=== PATIENT | male | born 1935 | race Caucasian/White ===

== ENCOUNTER 2023-07-23 11:37 | Emergency (ER) | payer MEDICARE, OTHER, SELFPAY ==
[2023-07-23 11:38] VITALS: PULSE 63; RESP 20; TEMP 35.9; O2SAT 93; BMI 33.2
[2023-07-23 11:42] VITALS: BP 116/66
--- NOTE | 2023-07-23 11:45 | EKG12_ITS ---
Test Reason : SYNCOPE Blood Pressure : / mmHG Vent. Rate : 062 BPM Atrial Rate : 062 BPM P-R Int : 174 ms QRS Dur : 154 ms QT Int : 510 ms P-R-T Axes : 007 046 051 degrees QTc Int : 517 ms Normal sinus rhythm Right bundle branch block Cannot rule out Inferior infarct , age undetermined Abnormal ECG Confirmed by JEMIMA HOOD, BEVERLEY ([id number]), development editor LUCINDA ARMAS ([id number]) on 07/26/2023 9:39:20 AM Referred By: ROMAIN Confirmed By:BEVERLEY ONOFRE MD
[2023-07-23 12:00] LABS: Absolute Lymphocyte Count 2.86 X10^3/uL (0.83-4.51); Basophil# 0.08 X10^3/uL; Basophil% 0.9 % (0-1); Eosinophil# 0.16 X10^3/uL; Eosinophils% 1.7 % (0-5); Hematocrit 41.4 % (40-54); Hemoglobin 13.1 g/dL (13.0-16.5); Lymphocyte # 2.86 X10^3/ul (0.83-4.51); Lymphocyte % 31.2 % (19-41); Mean Corp Hgb Conc 31.6 g/dL (32-36); Mean Corpuscular Hgb 29.8 pg (27.0-32.0); Mean Corpuscular Volume 94.1 fL (80-94); Mean Platelet Vol. 10.4 fl (6.2-12.0); Monocyte# 0.94 X10^3/uL; Monocyte% 10.3 % (0-10); NRBC Flagged by Analyzer 0 % (0-5); Neutrophil # 5.03 X10^3/uL (2.7-7.7); Neutrophil % 54.8 % (47-70); Platelet Count 208 K/mm3 (150-450); RBC Distribution Width CV 13.1 % (11.6-14.6); RBC Distribution Width SD 45.4 fl (35.1-43.9); White Blood Count 9.2 K/mm3 (4.4-11.0)
--- NOTE | 2023-07-23 12:01 | RAD_ITS ---
STUDY: X-RAY CHEST REASON FOR EXAM: Male, 88 years old. Stroke TECHNIQUE: Single AP portable view of the chest. COMPARISON: Comparison is made with prior study dated April 21, 2022. FINDINGS: EKG electrodes are seen. The lungs are clear and expanded. There is no demonstrated pleural abnormality. Sternal cerclage wires and vascular clips are present from a prior sternotomy and coronary artery bypass graft procedure (CABG). Normal mediastinum and cliff. Normal visualized pulmonary arteries. There is atherosclerotic calcification of the aortic arch with tortuosity. There are diffuse degenerative changes of the visualized thoracic spine. There is degenerative osteoarthritis of the bilateral shoulders. There is no demonstrated abnormality of the visualized soft tissue structures of the upper abdomen. RAD/Chest 1 View (Portable) IMPRESSION: No acute abnormality is seen. Electronically Signed: Armando Fowler MD at 12:18 EST ,
[2023-07-23 12:08] LABS: Prothrombin Time (Protime)PT. 13.4 SECONDS (11.7-14.9)
[2023-07-23 12:09] LABS: Partial Thromboplast Time 27.7 Seconds (24.1-36.2)
[2023-07-23 12:12] LABS: Anion Gap 7 (5-15); BUN 17 mg/dL (7-18); BUN/Creat Ratio 12.2 RATIO (10-20); Chloride 107 mmol/L (98-107); Creatinine, Serum 1.39 mg/dL (0.70-1.30); EST Glomerular Filtration Rate 51 mL/min (>60); Est Glom Filt Rate - Afr Amer 62 mL/min (>60); Estimated Creatinine Clearance 47.71 ml/min; Glucose 139 mg/dL (74-106); Sodium Level 141 mmol/L (136-145)
[2023-07-23 12:17] VITALS: BP 112/68; PULSE 59; RESP 15; O2SAT 100
--- NOTE | 2023-07-23 12:42 | EX.ED.DYSGE1 ---
HPI <JESÚS Read - Last Filed: 07/23/23 15:10> History of Present Illness Chief Complaint: Syncope Narrative Narrative: Patient presenting due to a syncopal episode that occurred this morning. His reports that he was sitting at the kitchen stool when he began to have a funny look on his face and pointed to his head and stated, my head. He then passed out, he did not fall off the chair, was able to lower his head onto the counter. reports that he has a history of syncope which has been worked up by cardiology in the past. She reports that he passes out about 1-2 times per year but has never been out as long as today. She reports that today he was out for about 25 minutes and she called EMS who was able to sternal rub the patient and he woke up. Patient reports that he feels well, he denies any head pain, chest pain, abdominal pain, nausea, and vomiting. Patient has a PMH of CABG in 1986, VAMSI, Parkinson's disease, dementia, and hyperlipidemia. PFSH <JESÚS Read - Last Filed: 07/23/23 15:10> [facility] Medical History Atherosclerotic heart disease of [place] coronary artery without angina pectoris Complicated UTI (urinary tract infection) COVID-19 Degenerative joint disease Dementia Generalized weakness GERD (gastroesophageal reflux disease) History of atrial fibrillation History of Parkinson's disease Hyperlipidemia Obesity Obstructive sleep apnea Parkinson disease Paroxysmal atrial fibrillation Psoriasis Syncope (08/13/21) Unable to ambulate Home Medications aspirin 81 mg chewable tablet 81 mg PO DAILY@0800 heart health 11/18/19 [History Last Taken 05/19/20] donepezil 10 mg tablet 10 mg PO DAILY dementia 11/18/19 [History Last Taken 05/19/20] therapeutic multivitamin 1 ea PO DAILY vitamin 11/18/19 [History Last Taken 05/19/20] carbidopa 25 mg-levodopa 100 mg tablet 1 ea PO TID parkinsons 05/20/20 [History Last Taken 05/19/20] memantine 14 mg capsule sprinkle,extended release 24hr 14 mg PO DAILY 12/19/20 [History Last Taken Unknown] acetaminophen 650 mg tablet,extended release 1,000 mg PO DAILY 03/22/21 [History Last Taken Unknown] gabapentin 300 mg capsule 300 mg PO BID 12/17/21 [History Last Taken Unknown] omeprazole 40 mg capsule,delayed release 40 mg PO DAILY 06/12/22 [History Last Taken Unknown] vit C 250 mg-vit E 90 mg-zinc 40 mg-copper 1 [id number] capsule (PreserVision AREDS-2) 1 tab PO BID 06/12/22 [History Last Taken Unknown] atorvastatin 40 mg tablet See Rx Instructions .Route .COMPLEX #90 tabs 10/19/22 [Rx Last Taken Unknown] carvedilol 3.125 mg tablet 3.125 mg PO BID post bypass #180 tabs 12/10/22 [Rx Last Taken Unknown] Allergy/AdvReac Type Severity Reaction Status Date / Time No Known Allergies Allergy Verified 12/10/22 12:59 Family History Father CVA (cerebral vascular accident) Mother CVA (cerebral vascular accident) Brother CVA (cerebral vascular accident) CAD (coronary artery disease) Hx of CABG Surgical History H/O coronary artery bypass surgery (05/1986) History of left heart catheterization (03/08/03) Status post total knee replacement, right Social History housing: house current occupational status: retired Smoking Status: Former smoker how long ago did patient quit smokin years ago alcohol intake: never substance use type: does not use caffeine: Yes Type: carbonated beverages Number of servings: 1 ROS <JESÚS Read - Last Filed: 07/23/23 15:10> ROS ED Constitutional Constitutional ED: Denies chills or fever(s) Eyes Eyes: Denies change in vision Cardiovascular Cardiovascular: Denies chest pain Respiratory/Chest Respiratory/Chest: Denies cough or dyspnea Gastrointestinal Gastrointestinal: Denies abdominal pain, nausea or vomiting Genitourinary Genitourinary ED: Denies dysuria, hematuria or urinary urgency Musculoskeletal Musculoskeletal: Denies arthralgias or myalgias Integumentary Denies rash Neurologic Neurologic: Denies dizziness, headache(s), paresthesias or weakness EXAM <JESÚS Read - Last Filed: 07/23/23 15:10> Physical Exam Const Vital Signs: 07/23/23 11:38 07/23/23 11:42 07/23/23 11:42 Temperature 96.6 F L Temperature Source Temporal Pulse Rate 63 Respiratory Rate 20 H Respiratory Effort Normal Blood Pressure 116/66 Blood Pressure Mean 82 Pulse Ox 93 Oxygen Delivery Method Room Air 07/23/23 12:11 07/23/23 12:17 07/23/23 14:21 Temperature Temperature Source Pulse Rate 59 L 63 Respiratory Rate 15 14 Respiratory Effort Blood Pressure 112/68 125/61 H Blood Pressure Mean 82 82 Pulse Ox 100 98 Oxygen Delivery Method Room Air Room Air 07/23/23 14:34 Temperature 97.6 F L Temperature Source Pulse Rate 63 Respiratory Rate 14 Respiratory Effort Blood Pressure 125/61 H Blood Pressure Mean 82 Pulse Ox 98 Oxygen Delivery Method Positive well nourished, well developed and no apparent distress General Appearance ED: well developed HEENT Reports normocephalic and head/scalp atraumatic Mouth ED: Yes moist mucous membranes normal Eyes PERRL and EOMs intact bilaterally Neck full ROM and supple Chest Wall inspection of chest normal Resp normal respiratory effort and clear to auscultation bilaterally Cardio regular rate and regular rhythm GI soft to palpation, non-tender, non-distended and no masses Back/Spine normal ROM and normal to inspection Extremity normal to inspection and full ROM Neuro oriented x3, CN's II-XII intact bilaterally, moves all extremities, no focal motor deficits and no sensory deficits noted Sensorium / Orientation: awake and alert Motor Exam: strength 5/5 throughout Psych mental status grossly normal and thought process normal Skin no rashes or lesions noted and no wounds <Dr. Moose Zapata MD - Last Filed: 07/23/23 14:36> Physical Exam Const Vital Signs: 07/23/23 11:38 07/23/23 11:42 07/23/23 11:42 Temperature 96.6 F L Temperature Source Temporal Pulse Rate 63 Respiratory Rate 20 H Respiratory Effort Normal Blood Pressure 116/66 Blood Pressure Mean 82 Pulse Ox 93 Oxygen Delivery Method Room Air 07/23/23 12:11 07/23/23 12:17 07/23/23 14:21 Temperature Temperature Source Pulse Rate 59 L 63 Respiratory Rate 15 14 Respiratory Effort Blood Pressure 112/68 125/61 H Blood Pressure Mean 82 82 Pulse Ox 100 98 Oxygen Delivery Method Room Air Room Air 07/23/23 14:34 Temperature 97.6 F L Temperature Source Pulse Rate 63 Respiratory Rate 14 Respiratory Effort Blood Pressure 125/61 H Blood Pressure Mean 82 Pulse Ox 98 Oxygen Delivery Method [facility] <JESÚS Read - Last Filed: 07/23/23 15:10> [facility] Narrative Medical decision making narrative: Patient presenting due to syncopal episode that occurred this morning. He has a history of syncope but normally is not out long. Today reports he was out for about 20 to 25 minutes. Patient reports that he feels well. I did review his previous cardiology visit with Dr. Gee for a. He had a cardiac rehabilitation specialist in July 2021, this showed paroxysmal A-fib but blood thinners were not started at that time due to history of falling. Echocardiogram in 09/19 with an EF of 45%. Stress test 2016 unremarkable. EKG shows a right bundle branch block which is not new. Labs overall are unremarkable. Patient does want to be discharged home. and patient do not want additional evaluation or admission. Return instructions have been given. He will be discharged home in stable condition and is comfortable with plan. I have personally performed a face to face assessment of the patient and have reviewed the NIESHA Note. I performed a substantive portion of the visit including all aspects of the following. My portillo findings include: History is a 88-year-old male history of syncope no prior specific diagnosis. He has had outpatient cardiac monitoring. He has had these episodes for more than 25 years. Patient's had a prior CABG. He is currently on Coreg. No known history of dysrhythmia. He does not have a pacemaker. Clinically has been feeling fine. Today had a syncopal episode that lasted maybe as long as 25 minutes. Patient denies any recent illness. He denies any headache or chest pain. He denies any abdominal pain. He did not fall or get injured. Currently he is back to baseline. Exam is [well-appearing 88-year-old male. Vital signs stable afebrile. Pulse ox 98% on room air no signs hypoxia. HEENT exam unremarkable. Awake alert. No droop. Extra motions are intact. Normal speech. No trauma. Neck nontender. Lungs clear. Heart regular rhythm rate about 65 no murmur. Chest wall and ribs nontender. Abdomen soft nontender. Back nontender. Moving all 4 extremities. 5 out of 5 silviculturist strength. Dorsi plantarflexion intact. Neurologically is awake and alert. Answering questions following commands. No focal motor deficits. He does have dementia that is his baseline. and daughter present in the room.] Medical Decision Making [88-year-old with a syncopal episode with a history of these for 25+ years. CBC is unremarkable. His electrolytes are unremarkable. His troponin is 17. I had a long discussion both the patient and his and his daughter all in the room. He absolutely wants to be discharged home. is fine with that. They do not want any further evaluation, admission or further monitoring. Will be discharged home. She knows to return if worse.] Other additions or changes: [None] Lab Data Attestation: I reviewed the patient's lab results. Labs: Laboratory Results - last 24 hr 07/23/23 11:50 WBC 9.2 RBC 4.40 L Hgb 13.1 Hct 41.4 MCV 94.1 H MCH 29.8 MCHC 31.6 L RDW Std Deviation 45.4 H RDW Coeff of Marcellus 13.1 Plt Count 208 MPV 10.4 Immature Gran % (Auto) 1.100 H Neut % (Auto) 54.8 Lymph % (Auto) 31.2 [place] % (Auto) 10.3 H Eos % (Auto) 1.7 Baso % (Auto) 0.9 Absolute Neuts (auto) 5.0 Absolute Lymphs (auto) 2.86 Nucleated RBC % 0 PT 13.4 INR 1.0 APTT 27.7 Sodium 141 Potassium 4.0 Chloride 107 Carbon Dioxide 27.0 Anion Gap 7 BUN 17 Creatinine 1.39 H Estim Creat Clear Calc 47.71 Est GFR (MDRD) Af Amer 62 Est GFR (MDRD) Non-Af 51 L BUN/Creatinine Ratio 12.2 Glucose 139 H Calcium 9.0 Troponin I High Sens 17 Radiography X-Ray: Read by ED Physician and Read by Radiologist Diagnostic Testing: Clinical Impression(s) from Imaging Studies Chest X-Ray 07/23/23 12:01 IMPRESSION: No acute abnormality is seen. Electronically Signed: Armando Fowler MD at 12:18 EST , EKG Initial EKG: Comments: 62 bpm, normal sinus rhythm, right bundle branch block, no ST elevation, reviewed and interpreted by attending ED physician <Dr. Moose Zapata MD - Last Filed: 07/23/23 14:36> [facility] Narrative Medical decision making narrative: Patient presenting due to syncopal episode that occurred this morning. He has a history of syncope but normally is not out long. Today reports he was out for about 20 to 25 minutes. Patient reports that he feels well. I did review his previous cardiology visit with Dr. Gee for a. He had a cardiac rehabilitation specialist in July 2021, this showed paroxysmal A-fib but blood thinners were not started at that time due to history of falling. Echocardiogram in 09/19 with an EF of 45%. Stress test 2016 unremarkable. EKG shows a right bundle branch block which is not new. I have personally performed a face to face assessment of the patient and have reviewed the NIESHA Note. I performed a substantive portion of the visit including all aspects of the following. My portillo findings include: History is a 88-year-old male history of syncope no prior specific diagnosis. He has had outpatient cardiac monitoring. He has had these episodes for more than 25 years. Patient's had a prior CABG. He is currently on Coreg. No known history of dysrhythmia. He does not have a pacemaker. Clinically has been feeling fine. Today had a syncopal episode that lasted maybe as long as 25 minutes. Patient denies any recent illness. He denies any headache or chest pain. He denies any abdominal pain. He did not fall or get injured. Currently he is back to baseline. Exam is [well-appearing 88-year-old male. Vital signs stable afebrile. Pulse ox 98% on room air no signs hypoxia. HEENT exam unremarkable. Awake alert. No droop. Extra motions are intact. Normal speech. No trauma. Neck nontender. Lungs clear. Heart regular rhythm rate about 65 no murmur. Chest wall and ribs nontender. Abdomen soft nontender. Back nontender. Moving all 4 extremities. 5 out of 5 silviculturist strength. Dorsi plantarflexion intact. Neurologically is awake and alert. Answering questions following commands. No focal motor deficits. He does have dementia that is his baseline. and daughter present in the room.] Medical Decision Making [88-year-old with a syncopal episode with a history of these for 25+ years. CBC is unremarkable. His electrolytes are unremarkable. His troponin is 17. I had a long discussion both the patient and his and his daughter all in the room. He absolutely wants to be discharged home. is fine with that. They do not want any further evaluation, admission or further monitoring. Will be discharged home. She knows to return if worse.] Other additions or changes: [None] History & Record Review Discussion w/independent historian: Patient and Family Additional record(s) reviewed:: Prior inpatient record, Prior outpatient record, Prior ED visit and Prior labs Lab Data Lab results narrative: CBC white count 9. H&H 13 and 41. Platelets 208. Electrolytes unremarkable gap 7. BUN is 17 creatinine 1.39. Glucose 139. Troponin normal at 17. Chest x-ray unremarkable. EKG unremarkable with a right bundle branch block. Labs: Laboratory Results - last 24 hr 07/23/23 11:50 WBC 9.2 RBC 4.40 L Hgb 13.1 Hct 41.4 MCV 94.1 H MCH 29.8 MCHC 31.6 L RDW Std Deviation 45.4 H RDW Coeff of Marcellus 13.1 Plt Count 208 MPV 10.4 Immature Gran % (Auto) 1.100 H Neut % (Auto) 54.8 Lymph % (Auto) 31.2 [place] % (Auto) 10.3 H Eos % (Auto) 1.7 Baso % (Auto) 0.9 Absolute Neuts (auto) 5.0 Absolute Lymphs (auto) 2.86 Nucleated RBC % 0 PT 13.4 INR 1.0 APTT 27.7 Sodium 141 Potassium 4.0 Chloride 107 Carbon Dioxide 27.0 Anion Gap 7 BUN 17 Creatinine 1.39 H Estim Creat Clear Calc 47.71 Est GFR (MDRD) Af Amer 62 Est GFR (MDRD) Non-Af 51 L BUN/Creatinine Ratio 12.2 Glucose 139 H Calcium 9.0 Troponin I High Sens 17 Radiography Diagnostic Testing: Clinical Impression(s) from Imaging Studies Chest X-Ray 07/23/23 12:01 IMPRESSION: No acute abnormality is seen. Electronically Signed: Armando Fowler MD at 12:18 EST , Discharge Plan Triage Chief Complaint: Syncope ED Midlevel Provider: Aliza Marion ED Provider: Moose Zapata Dx/Rx/DC Orders Clinical Impression: Syncope Instructions: ED Fainting, Uncertain Cause Prescriptions: No Action memantine 14 mg capsule,sprinkle,ER 24hr 14 mg PO DAILY gabapentin 300 mg capsule 300 mg PO BID omeprazole 40 mg capsule,delayed release(DR/EC) 40 mg PO DAILY PreserVision AREDS-2 250-90-40-1 mg capsule 1 tab PO BID carvedilol 3.125 mg tablet 3.125 mg PO BID Qty: 180 3RF donepezil 10 MG tablet 10 mg PO DAILY therapeutic multivitamin 1 EACH tablet 1 ea PO DAILY aspirin 81 MG tablet,chewable 81 mg PO DAILY@0800 carbidopa-levodopa 1 EACH tablet 1 ea PO TID acetaminophen 650 mg Tablet Extended Release 1,000 mg PO DAILY atorvastatin 40 mg tablet See Rx Instructions .ROUTE .COMPLEX Qty: 90 3RF Dose Instruction: TAKE 1 TABLET BY MOUTH EVERY DAY Rx Instructions: TAKE 1 TABLET BY MOUTH EVERY DAY Primary Care Provider: Tyler Florence Referrals: Tyler Florence MD [Primary Care Provider] - 3-5 Days Activity Restrictions/Additional Instructions: Please follow-up with PCP and return for any worsening of your symptoms. Disposition Disposition: Home, Self Care Discharge Date/Time: 07/23/23 14:37
[2023-07-23 12:55] LABS: Troponin-I HS 17 pg/mL (3.0-78.0)
[2023-07-23 14:21] VITALS: BP 125/61; PULSE 63; RESP 14; O2SAT 98
[2023-07-23 14:34] VITALS: BP 125/61; PULSE 63; RESP 14; TEMP 36.4; O2SAT 98
--- NOTE | 2023-07-23 17:53 | EDS_ITS ---
HPI History of Present Illness Chief Complaint: Syncope [facility] Medical History Atherosclerotic heart disease of [place] coronary artery without angina pectoris Complicated UTI (urinary tract infection) COVID-19 Degenerative joint disease Dementia Generalized weakness GERD (gastroesophageal reflux disease) History of atrial fibrillation History of Parkinson's disease Hyperlipidemia Obesity Obstructive sleep apnea Parkinson disease Paroxysmal atrial fibrillation Psoriasis Syncope (08/13/21) Unable to ambulate Home Medications aspirin 81 mg chewable tablet 81 mg PO DAILY@0800 heart health 11/18/19 [History Last Taken 05/19/20] donepezil 10 mg tablet 10 mg PO DAILY dementia 11/18/19 [History Last Taken 05/19/20] therapeutic multivitamin 1 ea PO DAILY vitamin 11/18/19 [History Last Taken 05/19/20] carbidopa 25 mg-levodopa 100 mg tablet 1 ea PO TID parkinsons 05/20/20 [History Last Taken 05/19/20] memantine 14 mg capsule sprinkle,extended release 24hr 14 mg PO DAILY 12/19/20 [History Last Taken Unknown] acetaminophen 650 mg tablet,extended release 1,000 mg PO DAILY 03/22/21 [History Last Taken Unknown] gabapentin 300 mg capsule 300 mg PO BID 12/17/21 [History Last Taken Unknown] omeprazole 40 mg capsule,delayed release 40 mg PO DAILY 06/12/22 [History Last Taken Unknown] vit C 250 mg-vit E 90 mg-zinc 40 mg-copper 1 [id number] capsule (PreserVision AREDS-2) 1 tab PO BID 06/12/22 [History Last Taken Unknown] atorvastatin 40 mg tablet See Rx Instructions .Route .COMPLEX #90 tabs 10/19/22 [Rx Last Taken Unknown] carvedilol 3.125 mg tablet 3.125 mg PO BID post bypass #180 tabs 12/10/22 [Rx Last Taken Unknown] Allergy/AdvReac Type Severity Reaction Status Date / Time No Known Allergies Allergy Verified 12/10/22 12:59 Family History Father CVA (cerebral vascular accident) Mother CVA (cerebral vascular accident) Brother CVA (cerebral vascular accident) CAD (coronary artery disease) Hx of CABG Surgical History H/O coronary artery bypass surgery (05/1986) History of left heart catheterization (03/08/03) Status post total knee replacement, right Social History housing: house current occupational status: retired Smoking Status: Former smoker how long ago did patient quit smokin years ago alcohol intake: never substance use type: does not use caffeine: Yes Type: carbonated beverages Number of servings: 1 EXAM Physical Exam Const Vital Signs: 07/23/23 11:38 07/23/23 11:42 07/23/23 11:42 Temperature 96.6 F L Temperature Source Temporal Pulse Rate 63 Respiratory Rate 20 H Respiratory Effort Normal Blood Pressure 116/66 Blood Pressure Mean 82 Pulse Ox 93 Oxygen Delivery Method Room Air 07/23/23 12:11 07/23/23 12:17 07/23/23 14:21 Temperature Temperature Source Pulse Rate 59 L 63 Respiratory Rate 15 14 Respiratory Effort Blood Pressure 112/68 125/61 H Blood Pressure Mean 82 82 Pulse Ox 100 98 Oxygen Delivery Method Room Air Room Air 07/23/23 14:34 Temperature 97.6 F L Temperature Source Pulse Rate 63 Respiratory Rate 14 Respiratory Effort Blood Pressure 125/61 H Blood Pressure Mean 82 Pulse Ox 98 Oxygen Delivery Method MDM MDM Lab Data Labs: Laboratory Results - last 24 hr 07/23/23 11:50 WBC 9.2 RBC 4.40 L Hgb 13.1 Hct 41.4 MCV 94.1 H MCH 29.8 MCHC 31.6 L RDW Std Deviation 45.4 H RDW Coeff of [place]cellus 13.1 Plt Count 208 MPV 10.4 Immature Gran % (Auto) 1.100 H Neut % (Auto) 54.8 Lymph % (Auto) 31.2 [place] % (Auto) 10.3 H Eos % (Auto) 1.7 Baso % (Auto) 0.9 Absolute Neuts (auto) 5.0 Absolute Lymphs (auto) 2.86 Nucleated RBC % 0 PT 13.4 INR 1.0 APTT 27.7 Sodium 141 Potassium 4.0 Chloride 107 Carbon Dioxide 27.0 Anion Gap 7 BUN 17 Creatinine 1.39 H Estim Creat Clear Calc 47.71 Est GFR (MDRD) Af Amer 62 Est GFR (MDRD) Non-Af 51 L BUN/Creatinine Ratio 12.2 Glucose 139 H Calcium 9.0 Troponin I High Sens 17 Radiography Diagnostic Testing: Clinical Impression(s) from Imaging Studies Chest X-Ray 07/23/23 12:01 IMPRESSION: No acute abnormality is seen. Electronically Signed: Armando Fowler MD at 12:18 EST , Discharge Plan Triage Chief Complaint: Syncope ED Midlevel Provider: Aliza Marion ED Provider: Moose Zapata Dx/Rx/DC Orders Clinical Impression: Syncope Instructions: ED Fainting, Uncertain Cause Prescriptions: No Action memantine 14 mg capsule,sprinkle,ER 24hr 14 mg PO DAILY gabapentin 300 mg capsule 300 mg PO BID omeprazole 40 mg capsule,delayed release(DR/EC) 40 mg PO DAILY PreserVision AREDS-2 250-90-40-1 mg capsule 1 tab PO BID carvedilol 3.125 mg tablet 3.125 mg PO BID Qty: 180 3RF donepezil 10 MG tablet 10 mg PO DAILY therapeutic multivitamin 1 EACH tablet 1 ea PO DAILY aspirin 81 MG tablet,chewable 81 mg PO DAILY@0800 carbidopa-levodopa 1 EACH tablet 1 ea PO TID acetaminophen 650 mg Tablet Extended Release 1,000 mg PO DAILY atorvastatin 40 mg tablet See Rx Instructions .ROUTE .COMPLEX Qty: 90 3RF Dose Instruction: TAKE 1 TABLET BY MOUTH EVERY DAY Rx Instructions: TAKE 1 TABLET BY MOUTH EVERY DAY Primary Care Provider: Tyler Florence Referrals: Tyler Florence MD [Primary Care Provider] - 3-5 Days Activity Restrictions/Additional Instructions: Please follow-up with PCP and return for any worsening of your symptoms. Disposition Disposition: Home, Self Care Discharge Date/Time: 07/23/23 14:37
== END 2023-07-23 14:37 | disposition home or self-care (01) ==
PROVIDERS: Physician Assistant; Emergency Provider Emergency Medicine; PCP Family Medicine; Visit Provider Emergency Medicine
DX: R55 Syncope and collapse (principal); F02.80 Dementia in other diseases classified elsewhere, unspecified severity, without behavioral disturbance, psychotic disturbance, mood disturbance, and anxiety; I48.0 Paroxysmal atrial fibrillation; G20.A1 Parkinson's disease without dyskinesia, without mention of fluctuations; E78.5 Hyperlipidemia, unspecified; I25.10 Atherosclerotic heart disease of native coronary artery without angina pectoris; Z95.1 Presence of aortocoronary bypass graft; Z79.82 Long term (current) use of aspirin; Z79.899 Other long term (current) drug therapy; Z86.16 Personal history of COVID-19; Z87.891 Personal history of nicotine dependence
CPT/HCPCS: 71045; 80048; 84484; 85025; 85610; 85730; 93005; 99284